=== PATIENT | male | born 1945 | race Caucasian/White ===

== ENCOUNTER → 2016-07-22 | Outpatient (CLI) | payer MEDICARE, BC ==
--- NOTE | 2016-07-23 16:07 | ECHO ---
The echocardiogram report can be seen in this patient's EMR in the Reports section. SERA
== END ==
LOC: MW.US 12:59
PROVIDERS: ATTEND Internal Medicine
DX: I48.91 Unspecified atrial fibrillation (principal)
CPT/HCPCS: 93306

== ENCOUNTER 2016-10-06 04:19 | Emergency (ER) | payer MEDICARE, BC ==
--- NOTE | 2016-10-06 04:45 | EDM.PDOC ---
ED HPI GENERAL MEDICAL PROBLEM - General Chief Complaint: Gastrointestinal Problem Stated Complaint: LT KNEE SURGERY RECENTLY- CONSTIPATION Time Seen by Provider: 10/06/16 04:33 - History of Present Illness INITIAL COMMENTS - FREE TEXT/NARRATIVE: HISTORY AND PHYSICAL: History of present illness: The patient is a 71-year-old male who underwent left knee surgery in [place] on September 29 and since that surgery has been taking narcotic pain medication and has only had small bowel movements since his surgery. The patient states he has not had any vomiting and does have intermittent nausea but that is not been the patient says his last bowel movement was a day and half ago and it was very small and hard in character. The patient says he's been taking stool softeners with the narcotic pain meds and stopped taking the medications for pain day and a half ago as well. He presents to the ED tonight because he is concerned not only about the constipation but now he has not been able to pass urine. Since 12 noon yesterday afternoon he has only had a scant amount of urine. He has no fever chills chest pain or shortness of breath. Patient has a history of state surgery in the past but has no kidney disease that he is aware of. Patient has only taken stool softeners and has not tried any [id number] laxatives or bowel therapies. Patient has been eating and drinking normally Review of systems: As per history of present illness and below otherwise all systems reviewed and negative. Past medical history: As per history of present illness and as reviewed below otherwise noncontributory. Surgical history: As per history of present illness and as reviewed below otherwise noncontributory. Social history: No reported history of drug or alcohol abuse. Family history: As per history of present illness and as reviewed below otherwise noncontributory. Physical exam: Gen.: Well-developed well-nourished man who is nontoxic and in with the ED with crutches without assistance or difficulty HEENT: Atraumatic, normocephalic, negative for conjunctival pallor or scleral icterus, mucous membranes moist, throat clear, neck supple, nontender, trachea midline. Lungs: Clear to auscultation, breath sounds equal bilaterally, chest nontender. Heart: S1S2, regular rate and rhythm no overt murmurs Abdomen: Soft, nondistended, mildly distended bladder and tenderness in the suprapubic area with palpation but no rebound or guarding. Bowel sounds are present but slightly hypoactive. Negative for masses or hepatosplenomegaly Pelvis: Stable nontender. Genitourinary: Deferred. Rectal: Deferred. Extremities: Atraumatic, patient is wearing SHADIA hose bilaterally, incision at the left knee is clean and dry without any warmth and there is some mild swelling of the knee without fluctuance, negative for cords or calf pain. Neurovascular unremarkable. Neuro: Awake, alert, oriented. Cranial nerves II through XII unremarkable. Cerebellum unremarkable. Motor and sensory unremarkable throughout. Exam nonfocal. Diagnostics: Bladder scan abdominal x-ray UA urine culture Therapeutics: Saini catheter was ordered after the bladder scan revealed urinary retention of 7 50 mL. Please note that when nursing came to place the Saini catheter the patient is very adamant about not having a Saini placed but only a straight catheter performed. We will go ahead and perform that and I did discuss with him my concerns and the possibilities going back into retention. He states understanding of that and accepts that. With straight catheterization 700 mL of urine was obtained and the patient feels significantly improved. We will send a UA and urine culture and he will go off to x-ray. Patient and are aware of UA results as well as x-ray results and I recommended and written a prescription for GoLYTELY. I told him to drink a gallon of GoLYTELY over an 8 hour period and do a clear liquid diet which she hydration in that interval. The patient states he is using Tylenol only for pain and I recommended refraining from narcotic use. I will recommend Dulcolax to be used if the GoLYTELY does not work and have advised to stay home today and to expect abdominal cramping and some nausea. I've advised him on reasons to return and need for follow-up with her clinic doctor. I've also strongly advised that if he is not passing urine today that he return to get a Saini catheter placed Impression: Constipation and urinary retention Definitive disposition and diagnosis as appropriate pending reevaluation and review of above. lower abdominal Pain Score (Numeric/FACES): 9 - Related Data Allergies Allergy/AdvReac Type Severity Reaction Status Date / Time lansoprazole [From Prevacid] Allergy Itching Verified 01/31/14 17:19 Animal Dander 'Cats/Dogs' Allergy Chest Uncoded 01/31/14 17:19 Tightness Home Meds: Home Meds Lisinopril 20 mg PO DAILY 01/31/14 [History] Montelukast Sodium 10 mg PO ASDIRECTED PRN 01/31/14 [History] Past Medical History HEENT History: Reports: None Cardiovascular History: Reports: Hypertension Respiratory History: Reports: None Gastrointestinal History: Reports: None Genitourinary History: Reports: Prostate Disorder Neurological History: Reports: None Psychiatric History: Reports: None Endocrine/Metabolic History: Reports: None Hematologic History: Reports: None Dermatologic History: Reports: None - Infectious Disease History Infectious Disease History: Reports: Chicken Pox - Past Surgical History Male Surgical History: Reports: Other (See Below) Other Male Surgeries/Procedures: prostate surgery Musculoskeletal Surgical History: Reports: Arthroscopic Procedure Social & Family History - Family History Family Medical History: Noncontributory - Tobacco Use Smoking Status *Q: Never Smoker - Alcohol Use Days Per Week of Alcohol Use: 5 Number of Drinks Per Day: 2 Total Drinks Per Week: 10 - Recreational Drug Use Recreational Drug Use: No Drug Use in Last 12 Months: No ED ROS GENERAL - Review of Systems Review Of Systems: ROS reveals no pertinent complaints other than HPI. ED EXAM, GENERAL - Physical Exam Exam: See Below (See dictation) Course - Vital Signs Last Recorded V/S: Last Vital Signs Temp 35.9 C 10/06/16 04:28 Pulse 96 10/06/16 04:28 Resp 18 10/06/16 04:28 BP 173/96 H 10/06/16 04:28 Pulse Ox 96 10/06/16 04:28 - Orders/Labs/Meds Orders: Active Orders 24 hr Category Date Time Status Insert Saini Catheter [Insert Urinary Catheter] [OM.PC] Care 10/06/16 05:15 Ordered Q24H Urinary Catheter Assessment [RC] ASDIRECTED Care 10/06/16 05:02 Active Abdomen 1V Upright [CR] Stat Exams 10/06/16 04:41 Taken CULTURE URINE [RM] Stat Lab 10/06/16 05:30 Received Labs: Laboratory Tests 10/06/16 Range/Units 05:30 Urine Color YELLOW Urine Appearance CLEAR Urine pH 7.0 (5.0-8.0) Ur Specific [place] 1.010 (1.001-1.035) Urine Protein NEGATIVE (NEGATIVE) mg/dL Urine Glucose (UA) NEGATIVE (NEGATIVE) mg/dL Urine Ketones TRACE H (NEGATIVE) mg/dL Urine Occult Blood NEGATIVE (NEGATIVE) Urine Nitrite NEGATIVE (NEGATIVE) Urine Bilirubin NEGATIVE (NEGATIVE) Urine Urobilinogen 0.2 (<2.0) EU/dL Ur Leukocyte Esterase NEGATIVE (NEGATIVE) Urine RBC 0-1 (0-2/HPF) Urine WBC 0-1 (0-5/HPF) Ur Epithelial Cells RARE (NONE-FEW) Urine Bacteria RARE (NEGATIVE) Departure - Departure Time of Disposition: 06:29 Disposition: Home, Self-Care 01 Condition: Good Clinical Impression: Urinary retention Constipation Qualifiers: Constipation type: other constipation type Qualified Code(s): K59.09 - Other constipation - Discharge Information Forms: ED Department Discharge Additional Instructions: The following information is given to patients seen in the emergency department who are being discharged to home. This information is to outline your options for follow-up care. We provide all patients seen in our emergency department with a follow-up referral. The need for follow-up, as well as the timing and circumstances, are variable depending upon the specifics of your emergency department visit. If you don't have a primary care physician on staff, we will provide you with a referral. We always advise you to contact your personal physician following an emergency department visit to inform them of the circumstance of the visit and for follow-up with them and/or the need for any referrals to a consulting specialist. The emergency department will also refer you to a specialist when appropriate. This referral assures that you have the opportunity for followup care with a specialist. All of these measure are taken in an effort to provide you with optimal care, which includes your followup. Under all circumstances we always encourage you to contact your private physician who remains a resource for coordinating your care. When calling for followup care, please make the office aware that this follow-up is from your recent emergency room visit. If for any reason you are refused follow-up, please contact the [facility] emergency department at and ask to speak to the emergency department charge nurse. [facility]- Internal Medicine and Family [address] [place] [address] [facility] [address] [place] [address] Please return to the ER if you're unable to pass urine as we discussed. These fill the prescription for GoLYTELY and drink the entire gallon over 68 hours. During this timeframe please eat a clear liquid diet and push hydration. If for GoLYTELY does not seem to work can try [id number] Dulcolax per the direction label. Expect cramping and abdominal discomfort with this process. Please call and follow-up with your provider and return to ER as needed and as discussed. - My Orders Last 24 Hours: My Active Orders 10/06/16 04:41 Abdomen 1V Upright [CR] Stat 10/06/16 05:02 Urinary Catheter Assessment [RC] ASDIRECTED 10/06/16 05:15 Insert Saini Catheter [Insert Urinary Catheter] [OM.PC] Q24H 10/06/16 05:30 CULTURE URINE [RM] Stat - Assessment/Plan Last 24 Hours: My Active Orders 10/06/16 04:41 Abdomen 1V Upright [CR] Stat 10/06/16 05:02 Urinary Catheter Assessment [RC] ASDIRECTED 10/06/16 05:15 Insert Saini Catheter [Insert Urinary Catheter] [OM.PC] Q24H 10/06/16 05:30 CULTURE URINE [RM] Stat
[2016-10-06 06:54] VITALS: BP 154/93
--- NOTE | 2016-10-06 11:20 | CR ---
EXAM DATE: 10/06/16 PATIENT'S AGE: 71 Patient: FREEDOM ECKERT Facility: [place], [place] Site . Site : 1945 Study: XRay Abdomen/Pelvis [id number]/25/2017 5:59:15 AM Ordering Physician: John Tran Final Report: HISTORY: Possible pain med induced constipation. S/p right total knee replacement. FINDINGS: Two upright views of the abdomen demonstrates lung bases to be clear. There is no free air under the diaphragm. There is some small bowel gas present in nondilated loops. Couple small bowel air-fluid levels are seen within the left abdomen. There is copious stool seen throughout the colon. Surgical clips are seen within the pelvis. There is postoperative changes of the lower lumbar spine with degenerative this of the disc. IMPRESSION: 1. Nonspecific bowel gas pattern. There is some small bowel gas present in nondilated loops with a few air-fluid levels with copious stool throughout the colon. 2. No free air. Dictated by Marielle Salinas MD @ 10/06/2016 6:14:32 AM Dictated by: Marielle Salinas MD @ 10/06/2016 06:14:35 (Electronic Signature) Report Signed by Proxy. SERA
== END 2016-10-06 06:45 | disposition home or self-care (01) ==
LOC: MW.ED 04:19
DX: K59.09 Other constipation (principal); R33.9 Retention of urine, unspecified; I10 Essential (primary) hypertension; Z91.048 Other nonmedicinal substance allergy status; Z88.8 Allergy status to other drugs, medicaments and biological substances; Z79.899 Other long term (current) drug therapy
CPT/HCPCS: 51798; 74000; 74000-26; 81001; 87086; 99283; 99284-25

== ENCOUNTER 2017-07-23 08:22 | Observation (INO) | payer MEDICARE, BC ==
[2017-07-23] MEDS ORDERED: Sodium Chloride 0.9% 10 ML Syringe FLUSH PRN (08:28)
[2017-07-23] MEDS ORDERED: Sodium Chloride 0.9% 2.5 ML Syringe FLUSH PRN (08:28)
--- NOTE | 2017-07-23 08:33 | EDM.PDOC ---
ED HPI GENERAL MEDICAL PROBLEM - General Chief Complaint: Chest Pain Stated Complaint: CHEST PAIN Time Seen by Provider: 07/23/17 08:33 Source of Information: Reports: Patient History Limitations: Reports: No Limitations - History of Present Illness INITIAL COMMENTS - FREE TEXT/NARRATIVE: History of present illness: []Patient started having tight chest discomfort 1 hour prior to arrival that is worse around his right shoulder blade. Patient has had similar episodes in the last 2 days lasting a few minutes at a time. Does not recall anything that reproduces the pain. Patient states he also feels "foggy" and mildly short of breath when it occurs. Denies any diaphoresis, dizziness, headache or syncope. Review of systems: As per history of present illness and below otherwise all systems reviewed and negative. Past medical history: As per history of present illness and as reviewed below otherwise noncontributory. Surgical history: As per history of present illness and as reviewed below otherwise noncontributory. Social history: No reported history of drug or alcohol abuse. Family history: As per history of present illness and as reviewed below otherwise noncontributory. Physical exam: General: Well developed, well nourished in NAD HEENT: Atraumatic, normocephalic, pupils reactive, negative for conjunctival pallor or scleral icterus, mucous membranes moist, throat clear, neck supple, nontender, trachea midline. Lungs: Clear to auscultation, breath sounds equal bilaterally, chest nontender. Heart: S1S2, regular, negative for clicks, rubs, or JVD. Abdomen: Soft, nondistended, nontender. Negative for masses or hepatosplenomegaly. Negative for costovertebral tenderness. Pelvis: Stable nontender. Genitourinary: Deferred. Rectal: Deferred. Extremities: Atraumatic, negative for cords or calf pain. Neurovascular unremarkable. Neuro: Awake, alert, oriented. Cranial nerves II through XII unremarkable. Cerebellum unremarkable. Motor and sensory unremarkable throughout. Exam nonfocal. Diagnostics: []Chest x-ray negative EKG no ischemic changes normal sinus rhythm, CBC normal chemistry normal troponin negative Therapeutics: []Aspirin nitroglycerin given with resolution of chest discomfort Impression: []Chest pain Plan: []Admit for observation and rule out DE Definitive disposition and diagnosis as appropriate pending reevaluation and review of above. shoulder blades Pain Score (Numeric/FACES): 4 - Related Data Allergies Allergy/AdvReac Type Severity Reaction Status Date / Time lansoprazole [From Prevacid] Allergy Itching Verified 07/23/17 08:37 omeprazole [From Prilosec] Allergy Rash Verified 07/23/17 08:37 Animal Dander 'Cats/Dogs' Allergy Chest Uncoded 01/31/14 17:19 Tightness Home Meds: Home Meds Lisinopril 20 mg PO DAILY 01/31/14 [History] amLODIPine [Norvasc] 10 mg PO DAILY 07/23/17 [History] Past Medical History HEENT History: Reports: None Cardiovascular History: Reports: Hypertension Respiratory History: Reports: None Gastrointestinal History: Reports: None Genitourinary History: Reports: Prostate Disorder Neurological History: Reports: None Psychiatric History: Reports: None Endocrine/Metabolic History: Reports: None Hematologic History: Reports: None Dermatologic History: Reports: None - Infectious Disease History Infectious Disease History: Reports: Chicken Pox - Past Surgical History Male Surgical History: Reports: Other (See Below) Other Male Surgeries/Procedures: prostate surgery Musculoskeletal Surgical History: Reports: Arthroscopic Procedure Social & Family History - Family History Family Medical History: Noncontributory ED ROS GENERAL - Review of Systems Review Of Systems: See Below (See history of present illness) ED EXAM, GENERAL - Physical Exam Exam: See Below (See history of present illness) Course - Vital Signs Last Recorded V/S: Last Vital Signs Temp 97.3 F 07/23/17 08:39 Pulse 75 07/23/17 09:26 Resp 18 07/23/17 09:26 BP 127/73 07/23/17 09:26 Pulse Ox 93 L 07/23/17 09:26 - Orders/Labs/Meds Orders: Active Orders 24 hr Category Date Time Status Patient Status [ADT] Stat ADT 07/23/17 09:31 Ordered EKG Documentation Completion [RC] STAT Care 07/23/17 08:28 Active Nitroglycerin [Nitrostat] Med 07/23/17 08:36 Active 0.4 mg SL Q5M PRN Sodium Chloride 0.9% [Normal Saline] 500 ml Med 07/23/17 09:00 Active IV .BOLUS Sodium Chloride 0.9% [Saline Flush] Med 07/23/17 08:28 Active 10 ml FLUSH ASDIRECTED PRN Sodium Chloride 0.9% [Saline Flush] Med 07/23/17 08:28 Active 2.5 ml FLUSH ASDIRECTED PRN Saline Lock Insert [OM.PC] Stat Oth 07/23/17 08:28 Ordered Medication Orders Sodium Chloride (Normal Saline) 500 mls @ 999 mls/hr IV .BOLUS WILLIAM Last Admin: 07/23/17 08:58 Dose: 999 mls/hr Nitroglycerin (Nitrostat) 0.4 mg SL Q5M PRN PRN Reason: Chest Pain Last Admin: 07/23/17 09:19 Dose: 0.4 mg Admin: 07/23/17 08:40 Dose: 0.4 mg Sodium Chloride (Saline Flush) 10 ml FLUSH ASDIRECTED PRN PRN Reason: Keep Vein Open Sodium Chloride (Saline Flush) 2.5 ml FLUSH ASDIRECTED PRN PRN Reason: Keep Vein Open Labs: Laboratory Tests 07/23/17 07/23/17 Range/Units 08:36 08:36 WBC 4.57 (4.0-11.0) K/uL RBC 5.03 (4.50-5.90) M/uL Hgb 15.2 (13.0-17.0) g/dL Hct 45.3 (38.0-50.0) % MCV 90.1 (80.0-98.0) fL MCH 30.2 (27.0-32.0) pg MCHC 33.6 (31.0-37.0) g/dL RDW Std Deviation 43.8 (28.0-62.0) fl RDW Coeff of Silas 13 (11.0-15.0) % Plt Count 267 (150-400) K/uL MPV 9.40 (7.40-12.00) fL Neut % (Auto) 49.7 (48.0-80.0) % Lymph % (Auto) 40.9 H (16.0-40.0) % [place] % (Auto) 7.9 (0.0-15.0) % Eos % (Auto) 1.3 (0.0-7.0) % Baso % (Auto) 0.2 (0.0-1.5) % Neut # (Auto) 2.3 (1.4-5.7) K/uL Lymph # (Auto) 1.9 (0.6-2.4) K/uL [place] # (Auto) 0.4 (0.0-0.8) K/uL Eos # (Auto) 0.1 (0.0-0.7) K/uL Baso # (Auto) 0.0 (0.0-0.1) K/uL Nucleated RBC % 0.0 /100WBC Nucleated RBCs # 0 K/uL Sodium 138 (136-148) mmol/L Potassium 4.1 (3.5-5.1) mmol/L Chloride 104 (98-107) mmol/L Carbon Dioxide 27.1 (21.0-32.0) mmol/L BUN 13 (7.0-18.0) mg/dL Creatinine 1.0 (0.8-1.3) mg/dL Est Cr Clr Drug Dosing 70.97 mL/min Estimated GFR (MDRD) > 60.0 ml/min Glucose 141 H (74-106) mg/dL Calcium 9.2 (8.5-10.1) mg/dL Total Bilirubin 0.5 (0.2-1.0) mg/dL AST 22 (15-37) IU/L ALT 33 (14-63) IU/L Alkaline Phosphatase 75 (46-116) U/L Troponin I < 0.050 (0.000-0.056) ng/mL Total Protein 7.4 (6.4-8.2) g/dL Albumin 3.7 (3.4-5.0) g/dL Globulin 3.7 H (2.0-3.5) g/dL Albumin/Globulin Ratio 1.0 L (1.3-2.8) Meds: Medications Generic Name Dose Route Start Last Admin Trade Name Freq PRN Reason Stop Dose Admin Sodium Chloride 500 mls @ 999 mls/hr 07/23/17 09:00 07/23/17 08:58 Normal Saline IV 999 mls/hr .BOLUS WILLIAM Administration Nitroglycerin 0.4 mg 07/23/17 08:36 07/23/17 09:19 Nitrostat SL 0.4 mg Q5M PRN Administration Chest Pain Sodium Chloride 10 ml 07/23/17 08:28 Saline Flush FLUSH ASDIRECTED PRN Keep Vein Open Sodium Chloride 2.5 ml 07/23/17 08:28 Saline Flush FLUSH ASDIRECTED PRN Keep Vein Open Discontinued Medications Generic Name Dose Route Start Last Admin Trade Name Ugo PRN Reason Stop Dose Admin Aspirin 324 mg 07/23/17 08:35 07/23/17 08:38 Aspirin PO 07/23/17 08:36 324 mg ONETIME ONE Administration Aspirin 324 mg 07/23/17 09:00 Aspirin PO DAILY WILLIAM Aspirin Confirm 07/23/17 08:35 07/23/17 08:39 Aspirin Administered 07/23/17 08:36 Not Given Dose 324 mg .ROUTE .STK-MED ONE Nitroglycerin Confirm 07/23/17 08:34 07/23/17 08:40 Nitrostat Administered 07/23/17 08:35 Not Given Dose 0.4 mg .ROUTE .STK-MED ONE Departure - Departure Time of Disposition: 09:39 Disposition: Refer to Observation Condition: Good Clinical Impression: Chest pain Qualifiers: Chest pain type: unspecified Qualified Code(s): R07.9 - Chest pain, unspecified Forms: ED Department Discharge - My Orders Last 24 Hours: My Active Orders 07/23/17 08:28 EKG Documentation Completion [RC] STAT Sodium Chloride 0.9% [Saline Flush] 10 ml FLUSH ASDIRECTED PRN Sodium Chloride 0.9% [Saline Flush] 2.5 ml FLUSH ASDIRECTED PRN Saline Lock Insert [OM.PC] Stat 07/23/17 08:36 Nitroglycerin [Nitrostat] 0.4 mg SL Q5M PRN 07/23/17 09:00 Sodium Chloride 0.9% [Normal Saline] 500 ml IV .BOLUS 07/23/17 09:31 Patient Status [ADT] Stat - Assessment/Plan Last 24 Hours: My Active Orders 07/23/17 08:28 EKG Documentation Completion [RC] STAT Sodium Chloride 0.9% [Saline Flush] 10 ml FLUSH ASDIRECTED PRN Sodium Chloride 0.9% [Saline Flush] 2.5 ml FLUSH ASDIRECTED PRN Saline Lock Insert [OM.PC] Stat 07/23/17 08:36 Nitroglycerin [Nitrostat] 0.4 mg SL Q5M PRN 07/23/17 09:00 Sodium Chloride 0.9% [Normal Saline] 500 ml IV .BOLUS 07/23/17 09:31 Patient Status [ADT] Stat
[2017-07-23] MEDS ORDERED: Nitroglycerin 0.4 MG Tab.SL ONE (08:34)
[2017-07-23] MEDS ORDERED: Aspirin 81 MG Tab.Chew PO ONE (08:35)
[2017-07-23] MEDS ORDERED: Aspirin 81 MG Tab.Chew ONE (08:35)
[2017-07-23] MEDS: Nitroglycerin 0.4 MG Tab.SL SL PRN ×2 (08:40→09:19)
[2017-07-23] MEDS ORDERED: Aspirin 81 MG Tab.Chew PO SCH (09:00)
[2017-07-23] MEDS ORDERED: Sodium Chloride 0.9% 500 ML IV SCH (09:00)
[2017-07-23 09:06] LABS: CHLORIDE,CL 104 mmol/L (98-107); SODIUM,NA 138 mmol/L (136-148)
--- NOTE | 2017-07-23 09:15 | CR ---
EXAMINATION: Portable chest radiograph. HISTORY: Shortness of breath. FINDINGS: The trachea is midline. The cardiomediastinal silhouette is within normal limits. No pulmonary infilt rates, effusions or pneumothorax. Osseous structures appear unremarkable. IMPRESSION: No acute cardiopulmonary process.
--- NOTE | 2017-07-23 11:49 | PCM.HP ---
H&P History of Present Illness - General Date of Service: 07/23/17 Admit Problem/Dx: Admission Diagnosis/Problem Admission Diagnosis/Problem Chest pain - History of Present Illness Initial Comments - Free Text/Narative: 72 yo male with history of HTN admitted for chest pain. The chest pain occurres earlier this morning. Patient was sitting on his chair when it began. It was located in the center and back of his chest towards his right shoulder blade. The pain was 5/10 intensity, non radiating and was continuous for about 30 minutes than became intermittent. The last time he experienced it was in the ED waiting room. He denies any associated nausea, vomiting, sob, numbness or tingling with the pain. He states that the past week he had 2 episodes of chest pain that were similar but the location was more below his clavicles and both of those occurred at rest. Other than these episodes he states he is doing well. He walks 1-4 miles daily without any difficulty. He has no history of tobacco use. He denies any NORTON, swelling, orthopnea, palpitations, syncope or PND. He states he had stress test over 5 years ago that was normal. He denies any additional history of heart disease or previous ND. In the ER his vitals were stable, EKG was NSR, troponin was negative and CXR revealed no abnormalities. He was given single dose of ASA and nitroglycerin. his labs revealed no abnormalities shoulder blades Pain Score (Numeric/FACES): 4 - Related Data Allergies/Adverse Reactions: Allergies Allergy/AdvReac Type Severity Reaction Status Date / Time lansoprazole [From Prevacid] Allergy Itching Verified 07/23/17 08:37 omeprazole [From Prilosec] Allergy Rash Verified 07/23/17 08:37 Animal Dander 'Cats/Dogs' Allergy Chest Uncoded 01/31/14 17:19 Tightness Home Medications: Home Meds Lisinopril 20 mg PO DAILY 01/31/14 [History] amLODIPine [Norvasc] 10 mg PO DAILY 07/23/17 [History] Past Medical History HEENT History: Reports: None, Impaired Vision Other HEENT History: has appointment with Dr Weiss to check status of cataract known in both eyes. Cardiovascular History: Reports: Hypertension Respiratory History: Reports: None Gastrointestinal History: Reports: None Other Gastrointestinal History: pt thinks he has GERD. Genitourinary History: Reports: Prostate Disorder Neurological History: Reports: None Psychiatric History: Reports: None Endocrine/Metabolic History: Reports: None Hematologic History: Reports: None Immunologic History: Reports: None Oncologic (Cancer) History: Reports: None Dermatologic History: Reports: None - Infectious Disease History Infectious Disease History: Reports: Chicken Pox - Past Surgical History Head Surgeries/Procedures: Reports: None HEENT Surgical History: Reports: Tonsillectomy Other HEENT Surgeries/Procedures: had deviated septum surgery GI Surgical History: Reports: Colonoscopy Male Surgical History: Reports: Other (See Below) Other Male Surgeries/Procedures: prostate surgery Musculoskeletal Surgical History: Reports: Arthroscopic Procedure Oncologic Surgical History: Reports: None Social & Family History - Family History Family Medical History: Noncontributory - Tobacco Use Smoking Status *Q: Never Smoker Second Hand Smoke Exposure: Yes - Caffeine Use Caffeine Use: Reports: Coffee Other Caffeine Use: half caffeine - Alcohol Use Days Per Week of Alcohol Use: 2 Number of Drinks Per Day: 2 Total Drinks Per Week: 4 - Recreational Drug Use Recreational Drug Use: No H&P Review of Systems - Review of Systems: Review Of Systems: See Below General: Reports: No Symptoms HEENT: Reports: No Symptoms Pulmonary: Reports: No Symptoms Cardiovascular: Reports: No Symptoms Gastrointestinal: Reports: No Symptoms Genitourinary: Reports: No Symptoms Musculoskeletal: Reports: No Symptoms Skin: Reports: No Symptoms Psychiatric: Reports: No Symptoms Neurological: Reports: No Symptoms Hematologic/Lymphatic: Reports: No Symptoms Immunologic: Reports: No Symptoms Exam - Exam Exam: See Below - Vital Signs Vital Signs: Last Vital Signs Temp 36.3 C 07/23/17 08:39 Pulse 75 07/23/17 09:26 Resp 18 07/23/17 09:26 BP 127/73 07/23/17 09:26 Pulse Ox 93 L 07/23/17 09:26 Weight: 106.2 kg - Exam General: Alert, Oriented HEENT: Conjunctiva Clear, EACs Clear, EOMI, Hearing Intact, Mucosa Moist & [place] , Nares Patent, Normal Nasal Septum, Posterior Pharynx Clear, Pupils Equal, Pupils Reactive Neck: Supple, Trachea Midline Lungs: Clear to Auscultation, Normal Respiratory Effort Cardiovascular: Regular Rate, Regular Rhythm GI/Abdominal Exam: Normal Bowel Sounds, Soft, Non-Tender, No Organomegaly Back Exam: Normal Inspection, Full Range of Motion Extremities: Normal Inspection, Normal Range of Motion, Non-Tender, No Pedal Edema, Normal Capillary Refill Skin: Warm, Dry, Intact Neurological: Cranial Nerves Intact, Reflexes Equal Bilateral Neuro Extensive - Mental Status: Alert, Oriented x3 Psychiatric: Alert, Normal Affect, Normal Mood - Patient Data Lab Results Last 24 hrs: Laboratory Results - last 24 hr 07/23/17 07/23/17 Range/Units 08:36 08:36 WBC 4.57 (4.0-11.0) K/uL RBC 5.03 (4.50-5.90) M/uL Hgb 15.2 (13.0-17.0) g/dL Hct 45.3 (38.0-50.0) % MCV 90.1 (80.0-98.0) fL MCH 30.2 (27.0-32.0) pg MCHC 33.6 (31.0-37.0) g/dL RDW Std Deviation 43.8 (28.0-62.0) fl RDW Coeff of Silas 13 (11.0-15.0) % Plt Count 267 (150-400) K/uL MPV 9.40 (7.40-12.00) fL Neut % (Auto) 49.7 (48.0-80.0) % Lymph % (Auto) 40.9 H (16.0-40.0) % [place] % (Auto) 7.9 (0.0-15.0) % Eos % (Auto) 1.3 (0.0-7.0) % Baso % (Auto) 0.2 (0.0-1.5) % Neut # (Auto) 2.3 (1.4-5.7) K/uL Lymph # (Auto) 1.9 (0.6-2.4) K/uL [place] # (Auto) 0.4 (0.0-0.8) K/uL Eos # (Auto) 0.1 (0.0-0.7) K/uL Baso # (Auto) 0.0 (0.0-0.1) K/uL Nucleated RBC % 0.0 /100WBC Nucleated RBCs # 0 K/uL Sodium 138 (136-148) mmol/L Potassium 4.1 (3.5-5.1) mmol/L Chloride 104 (98-107) mmol/L Carbon Dioxide 27.1 (21.0-32.0) mmol/L BUN 13 (7.0-18.0) mg/dL Creatinine 1.0 (0.8-1.3) mg/dL Est Cr Clr Drug Dosing 70.97 mL/min Estimated GFR (MDRD) > 60.0 ml/min Glucose 141 H (74-106) mg/dL Calcium 9.2 (8.5-10.1) mg/dL Total Bilirubin 0.5 (0.2-1.0) mg/dL AST 22 (15-37) IU/L ALT 33 (14-63) IU/L Alkaline Phosphatase 75 (46-116) U/L Troponin I < 0.050 (0.000-0.056) ng/mL Total Protein 7.4 (6.4-8.2) g/dL Albumin 3.7 (3.4-5.0) g/dL Globulin 3.7 H (2.0-3.5) g/dL Albumin/Globulin Ratio 1.0 L (1.3-2.8) Result Diagrams: 07/23/17 08:36 07/23/17 08:36 Problem List Initiated/Reviewed/Updated: Yes Orders Last 24hrs: Active Orders 24 hr Category Date Time Status Patient Status [ADT] Routine ADT 07/23/17 11:38 Active Patient Status [ADT] Stat ADT 07/23/17 09:31 Active Oxygen Therapy [RC] PRN Care 07/23/17 11:38 Active Up ad Gerri [RC] ASDIRECTED Care 07/23/17 11:38 Active VTE/DVT Education [RC] PER UNIT ROUTINE Care 07/23/17 11:38 Active Vital Signs [RC] Q4H Care 07/23/17 11:38 Active Regular Diet [DIET] Diet 07/23/17 Lunch Active Nitroglycerin [Nitrostat] Med 07/23/17 08:36 Active 0.4 mg SL Q5M PRN Sodium Chloride 0.9% [Normal Saline] 500 ml Med 07/23/17 09:00 Active IV .BOLUS Sodium Chloride 0.9% [Saline Flush] Med 07/23/17 08:28 Active 10 ml FLUSH ASDIRECTED PRN Sodium Chloride 0.9% [Saline Flush] Med 07/23/17 08:28 Active 2.5 ml FLUSH ASDIRECTED PRN Saline Lock Insert [OM.PC] Stat Oth 07/23/17 08:28 Ordered Resuscitation Status Routine Resus Stat 07/23/17 11:38 Ordered Medication Orders Sodium Chloride (Normal Saline) 500 mls @ 999 mls/hr IV .BOLUS WILLAIM Last Admin: 07/23/17 08:58 Dose: 999 mls/hr Nitroglycerin (Nitrostat) 0.4 mg SL Q5M PRN PRN Reason: Chest Pain Last Admin: 07/23/17 09:19 Dose: 0.4 mg Admin: 07/23/17 08:40 Dose: 0.4 mg Sodium Chloride (Saline Flush) 10 ml FLUSH ASDIRECTED PRN PRN Reason: Keep Vein Open Sodium Chloride (Saline Flush) 2.5 ml FLUSH ASDIRECTED PRN PRN Reason: Keep Vein Open Assessment/Plan Comment:: #Chest Pain -atypical, occurs at rest, no relationship with activity, no associated sob/ numbness/tingling/radiation -history of controlled HTN -excellent functional capacity Plan: -admit to obs -serial troponin x3 -telemetry -start Ranitidine -discharge home with outpatient stress-test if labs normal #HTN, controlled -resume home medications #Alcohol Use disorder -patient admits to drinking 2-4 beers/3-4 days per week -counselled alcohol cessation
[2017-07-23] MEDS ORDERED: Famotidine 20 MG Tab PO SCH (12:30)
[2017-07-23 17:01] VITALS: BP 144/77
== END 2017-07-23 17:35 | disposition home or self-care (01) ==
LOC: MW.ED 08:22 → MW.MS 09:42
PROVIDERS: ADMIT Family Medicine; ATTEND Family Medicine
DX: R07.89 Other chest pain (principal); I10 Essential (primary) hypertension; K21.9 Gastro-esophageal reflux disease without esophagitis; Z88.8 Allergy status to other drugs, medicaments and biological substances; Z91.048 Other nonmedicinal substance allergy status; Z79.899 Other long term (current) drug therapy; Z90.89 Acquired absence of other organs; Z72.89 Other problems related to lifestyle
CPT/HCPCS: 36415; 71045; 71045-26; 80053; 84484; 85025; 93005; 99285-25; A9270-GY; G0378; J7040